=== PATIENT | female | born 1965 | race Caucasian/White ===

== ENCOUNTER 2018-04-14 09:02 | Emergency (ER) | payer OTHER ==
[~2018-04-14] VITALS: Ht 165.1 cm; Wt 56.0 kg
[2018-04-14 09:12] VITALS: BP 132/71; PULSE 80; RESP 18; Ht 165.1 cm; Wt 56.0 kg
[2018-04-14] MEDS ORDERED: CYCL10TA7 PO (10:58)
[2018-04-14] MEDS ORDERED: NAPR-985 PO (10:58)
[2018-04-14] MEDS ORDERED: HYDR-4011 PO (10:58)
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
== END 2018-04-14 11:14 | disposition home or self-care (01) ==
LOC: FTE 09:02
DX: R07.89 Other chest pain (principal); I10 Essential (primary) hypertension; Z85.3 Personal history of malignant neoplasm of breast
CPT/HCPCS: 71045; Z7502